=== PATIENT | male | born 1985 | race Two or more races ===

== ENCOUNTER 2016-11-16 07:33 | Inpatient (IN) | payer OTHER ==
[2016-11-16] VITALS (14 sets, daily range): BP systolic 97–145; BP diastolic 45–83
[~2016-11-16] VITALS: Ht 167.6 cm; Wt 92.5 kg
[~2016-11-16 07:33] MED LIST: Bacitracin 50000 Units Vial ONE; Bupivacaine 0.5% Inj 30 ml vial INJ ONE; Bupivacaine w/Epi 0.5% 30ml Vial INJ ONE; Dexamethasone 20mg/5ml IVP ONE; Heparin 5000 units/ml inj ONE; NKM; Thrombin 5000 units TOPIC ONE; Vancomycin 1gm inj IVPB ONE; ceFAZolin sod 1 GM in NS 55 ML IVPB ONE
[2016-11-16] MEDS ORDERED: Sterile Water Irrig 1000ml IRRIG ONE (08:40)
[2016-11-16] MEDS ORDERED: Zemuron 50mg/5ml Inj IV ONE (08:40)
[2016-11-16] MEDS ORDERED: fentaNYL 250mcg/5ml ONE (08:40)
[2016-11-16] MEDS ORDERED: Propofol 10mg/ml 100ml btl IV ONE (08:40)
[2016-11-16] MEDS ORDERED: Dexamethasone 4mg/ml vial ONE (08:40)
[2016-11-16] MEDS ORDERED: fentaNYL 100 mcg/2 mL IV ONE (08:40)
[2016-11-16] MEDS ORDERED: Lidocaine 1% MPF 10mg/ml 5ml ONE (08:40)
[2016-11-16] MEDS ORDERED: LR 1000ml ONE (08:40)
[2016-11-16] MEDS ORDERED: Labetalol 5mg/ml 20ml vial IV ONE (08:40)
[2016-11-16] MEDS ORDERED: NS Irrig 1000ml ONE (08:40)
[2016-11-16] MEDS ORDERED: Lidocaine 1% Plain 30 ml INJ ONE (08:40)
[2016-11-16] MEDS ORDERED: LR 1000ml 1,000 ML IVLG SCH (08:44)
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
[2016-11-16] MEDS ORDERED: Hydromorphone 0.5mg/0.5ml inj IVP PRN (08:45)
[2016-11-16] MEDS ORDERED: DiphenhydrAMINE 50mg/ml Inj IVP PRN (08:45)
[2016-11-16] MEDS ORDERED: Norco 7.5mg/325mg tab ORAL PRN (08:45)
[2016-11-16] MEDS ORDERED: Metoclopramide 10mg/2ml Inj IVP PRN ×2 (08:45→11:30)
[2016-11-16] MEDS ORDERED: Ketorolac 60mg Inj IV PRN (08:45)
[2016-11-16] MEDS ORDERED: Atropine Inj 1mg/10ml Syr IV PRN (08:45)
[2016-11-16] MEDS ORDERED: LORazepam Inj 2mg/ml 1ml IV PRN (08:45)
[2016-11-16] MEDS ORDERED: Midazolam 2mg/2ml Inj IVP PRN (08:45)
[2016-11-16] MEDS ORDERED: fentaNYL 100 mcg/2 mL IV PRN (08:45)
[2016-11-16] MEDS ORDERED: Meperidine 25mg/0.5ml Inj IV PRN (08:45)
[2016-11-16] MEDS ORDERED: Ketorolac 30mg Inj IV PRN (08:45)
[2016-11-16] MEDS ORDERED: Oxycodone/Acetaminophen 5-325 ORAL PRN (08:45)
[2016-11-16] MEDS ORDERED: Norco 5mg/325mg tab ORAL PRN (08:45)
[2016-11-16] MEDS ORDERED: Acetaminophen (Non formulary) 100 ML IV ONE (09:00)
--- NOTE | 2016-11-16 09:02 | Pre-Procedure Note/Attestation ---
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 I attest that, if there was a reasonable possibility of needing a blood transfusion, the patient (or the patient's legal electronics parts sales representative) was given the [place] Department of Health Services standardized written summary, pursuant to the Javier Gavin Blood Safety Act ([place] Health and Safety Code # 1645, as amended). I attest that I re-evaluated the patient just prior to the surgery and that there has been no change in the patient's H&P, except as documented below: BERENICE BRUNNER November 16, 2016 09:02
--- NOTE | 2016-11-16 09:16 | Immediate Post-Op Evaluation ---
Immediate Post-Op Evalulation Immediate Post-Op Evalulation Procedure: ALIF L4-5 Date of Evaluation: November 16, 2016 Time of Evaluation: 11:19 IV Fluids: [id number] Blood Products: 0 Estimated Blood Loss: 40 Urinary Output: 50 Blood Pressure Systolic: 102 Blood Pressure Diastolic: 56 Pulse Rate: 74 Respiratory Rate: 16 O2 Sat by Pulse Oximetry: 98 Temperature (Fahrenheit): 97.3 Pain Score (1-10): 3 Nausea: No Vomiting: No Complications 0 Patient Status: awake, reacts, patent, extubated, none Hydration Status: adequate Dru Grams Ancef IV Given Within 1 Hr of Incision: Yes Time Given: 09:01 Jonathan Schultz MD November 16, 2016 09:16
--- NOTE | 2016-11-16 11:25 | Brief Operative Note ---
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
[2016-11-16] MEDS ORDERED: PCA HYDROmorphone 1mg/ml 30 ML IV PRN ×3 (12:00)
[2016-11-16] MEDS ORDERED: Rate Change PCA 1 Each MISC PRN (12:00)
[2016-11-16] MEDS: D5 1/2NS 1,000 ML IV SCH ×2 (14:32→20:25)
--- NOTE | 2016-11-16 16:08 | Operative Note - Dictated ---
DATE OF OPERATION: 11/16/2016 VASCULAR SURGEON: Jadyon Alcantar M.D. SPINE SURGEON: Sanchez Marks M.D. PREOPERATIVE DIAGNOSIS: Degenerative disk disease. POSTOPERATIVE DIAGNOSIS: Degenerative disk disease. PROCEDURE: Anterior retroperitoneal exposure of L4-L5 vertebral interspace. INDICATIONS: The patient is a very pleasant gentleman, who was seen prior to surgery and is scheduled for anterior fusion at L4-L5. He has been made aware of the risks of surgery including possibly vascular injury, deep venous thrombosis and bleeding complications. He has had no prior intra-abdominal surgery before. DESCRIPTION OF FINDINGS: A vertical midline incision was used. A left retroperitoneal approach was used. There is no peritoneal or ureteral violation. Exposure of L4-L5 was obtained by retraction of left iliac vessels towards the patient's right. There was a small amount of lymphatic drainage encountered at the level of the iliolumbar vein. This was corrected with multiple vascular clips on the lymphatic tissue. On completion, there was no lymphatic fluid in the in the retroperitoneal space and clean and dry. There is no peritoneal or ureteral violation. There is no vascular injury. DESCRIPTION OF PROCEDURE: The patient was taken to the operating room. General anesthesia was used. Intravenous antibiotics were given. The patient's abdomen was prepped and draped. Proper time-out procedure taken. A low vertical midline incision was made. The anterior fascia incised longitudinally in the midline. A plane identified posterior to the left rectus abdominis and developed posterolaterally towards the patient's left. The retroperitoneal space was entered below the arcuate line. The peritoneum and ureter mobilized towards the patient's right exposing the left common iliac vessels. Dissection was carried on the lateral surface of the iliac vessels. The iliolumbar vein was identified and was encircled using a 2-0 silk tie and then triply ligated proximally distally with vascular clips and divided. During this maneuver, there was a small amount of white lymphatic drainage encountered. This was carefully inspected and was found to be coming from the lymphatic tissue lateral to the vein. This was then ligated using vascular clips. The left iliac vessels were then retracted towards the patient's right exposing the anterior surface of L4-L5. The Omni retractor was set in place. Fluoroscopy then used to confirm the appropriate level. Then instrumentation fusion performed at L4-L5 as dictated separately. On completion, the peritoneum and ureter intact. Iliac vessels were intact. Anterior fascia closed using #1 PDS in a running fashion and skin and subcutaneous tissue closed with 3-0 Vicryl and 4-0 Monocryl running subcuticular closure technique. Estimated blood loss was less than 100. Complications were none. Jaydon Guilherme Alcantar DR: TIFFANIE JOB#: [id number] CC:
[2016-11-16] MEDS: ceFAZolin sod 1 GM in D5W 55 ML IV SCH (16:29)
--- NOTE | 2016-11-16 16:29 | Operative Note - Dictated ---
DATE OF OPERATION: 11/16/2016 SURGEON: Sanchez Marks M.D. CO-SURGEON: Vascular Surgery, Jaydon Alcantar M.D. ANESTHESIOLOGIST: Jonathan Schultz M.D. ANESTHESIA: General with intubation. ADMITTING/PREOPERATIVE DIAGNOSES: Posttraumatic back pain, radiculopathy with spondylolysis, spondylolisthesis, spinal instability. POSTOPERATIVE DIAGNOSES: Posttraumatic back pain, radiculopathy with spondylolysis, spondylolisthesis, spinal instability. OPERATIVE PROCEDURE: 1. Anterior L4-L5 Interbody reconstruction, fusion, bone morphogenic protein, insertion of artificial lordotic device, Jan. 2. SSEP monitoring. 3. Intraoperative fluoroscopy interpreted by surgeon. ESTIMATED BLOOD LOSS: Minimal. COMPLICATIONS: None. POSTOPERATIVE CONDITION: Good/stable. SPECIMENS: None. Please see vascular approach and closure by Dr. Marks, assisted by Dr. Alcantar. DESCRIPTION OF PROCEDURE: The patient was brought to the operating room and in supine position, general anesthesia with intubation was induced. IV antibiotics and IV Decadron were administered prior to incision time. Anterior exposure was undertaken, please see separate note, of L4-L5 with confirmation midline and level in AP and lateral planes under sterile conditions. Markers in place. Level was marked. Retractors placed. Annulotomy performed anteriorly with diskectomy, but not through the posterior longitudinal ligament. Endplate preparation to bleeding bone cephalad, caudad, and mediolateral without penetration to the lateral annulus at any time. SSEP monitoring stable. Interpositional placement of Titanium/PEEK graft Jan of the appropriate dimensions with lordosis with correction of deformity to lordosis from kyphosis. Care taken for negative distraction of the posterior spondylitic defect. Appropriate interbody device placed with bone morphogenic protein, followed with deployment of internal fixation cephalad, caudad into the vertebral bodies. SSEP monitoring stable at all times. AP and lateral radiographs obtained demonstrated excellent alignment and position. Recorded. After closure, the patient was awakened, extubated in the operating room, and transported to postop recovery in good stable condition. Sanchez Marks M.D. DR: DELONTE/Manjit JOB#: [id number] CC:
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
[2016-11-16] MEDS: PCA shift volume MISC SCH (19:33)
[2016-11-17] VITALS (12 sets, daily range): BP systolic 111–133; BP diastolic 53–84
[2016-11-17] MEDS: ceFAZolin sod 1 GM in D5W 55 ML IV SCH ×3 (01:11→21:29)
[2016-11-17] MEDS: D5 1/2NS 1,000 ML IV SCH ×3 (05:14→21:29)
[2016-11-17] MEDS: PCA shift volume MISC SCH ×2 (07:11→19:24)
--- NOTE | 2016-11-17 08:39 | Diagnostic Imaging Report ---
Indication: PAIN , intraoperative Technique: Digital intraoperative images Comparison: None Findings: Intraoperative images demonstrate surgical tool projected at the anterior aspect of what is presumably the L4-5 disc. Subsequent images document placement of disc hardware at L4-5 Impression: Intraoperative imaging, as described
[2016-11-17] MEDS ORDERED: Bacitracin 50000 Units Vial ONE (12:20)
[2016-11-17] MEDS ORDERED: Bupivacaine w/Epi 0.5% 30ml Vial INJ ONE (12:20)
[2016-11-17] MEDS ORDERED: Lacri-Lube Opth Oint 3.5gm ONE (12:20)
[2016-11-17] MEDS ORDERED: Thrombin 5000 units TOPIC ONE (12:20)
[2016-11-17] MEDS ORDERED: Surgicel 4in x 8in TOPIC ONE (12:20)
[2016-11-17] MEDS ORDERED: Vancomycin 1gm inj IVPB ONE (12:20)
[2016-11-17] MEDS ORDERED: NS Irrig 1000ml ONE (12:45)
[2016-11-17] MEDS ORDERED: fentaNYL 100 mcg/2 mL IV ONE (12:45)
[2016-11-17] MEDS ORDERED: Propofol 10mg/ml 100ml btl IV ONE (12:45)
[2016-11-17] MEDS ORDERED: LR 1000ml ONE (12:45)
[2016-11-17] MEDS ORDERED: Labetalol 5mg/ml 20ml vial IV ONE (12:45)
[2016-11-17] MEDS ORDERED: Zemuron 50mg/5ml Inj IV ONE (12:45)
[2016-11-17] MEDS ORDERED: Lidocaine 1% Plain 30 ml INJ ONE (12:45)
[2016-11-17] MEDS ORDERED: Sterile Water Irrig 1000ml IRRIG ONE (12:45)
[2016-11-17] MEDS ORDERED: Neostigmine 1mg/ml 10ml Inj ONE (12:45)
[2016-11-17] MEDS ORDERED: Dexamethasone 4mg/ml vial ONE (12:45)
[2016-11-17] MEDS ORDERED: fentaNYL 250mcg/5ml ONE (12:45)
[2016-11-17] MEDS ORDERED: Glycopyrrolate 0.2mg/ml 1ml Vial ONE (12:45)
[2016-11-17] MEDS ORDERED: Lidocaine 1% MPF 10mg/ml 5ml ONE (12:45)
[2016-11-17] MEDS ORDERED: LR 1000ml 1,000 ML IVLG SCH (12:50)
--- NOTE | 2016-11-17 12:55 | Immediate Post-Op Evaluation ---
Immediate Post-Op Evalulation Immediate Post-Op Evalulation Procedure: Posterior Pedilce screws, L4-5 Date of Evaluation: November 17, 2016 Time of Evaluation: 16:05 IV Fluids: 1000 LR Blood Products: 0 Estimated Blood Loss: 25 Urinary Output: 150 Blood Pressure Systolic: 126 Blood Pressure Diastolic: 66 Pulse Rate: 97 Respiratory Rate: 16 O2 Sat by Pulse Oximetry: 99 Temperature (Fahrenheit): 98.9 Pain Score (1-10): 3 Nausea: No Vomiting: No Complications 0 Patient Status: awake, reacts, patent, extubated, none Hydration Status: adequate Dru Grams Ancef IV Given Within 1 Hr of Incision: Yes Time Given: 13:01 Jonathan Schultz MD November 17, 2016 12:55
[2016-11-17] MEDS ORDERED: Norco 7.5mg/325mg tab ORAL PRN (13:00)
[2016-11-17] MEDS ORDERED: Meperidine 25mg/0.5ml Inj IV PRN (13:00)
[2016-11-17] MEDS ORDERED: Midazolam 2mg/2ml Inj IVP PRN (13:00)
[2016-11-17] MEDS ORDERED: fentaNYL 100 mcg/2 mL IV PRN (13:00)
[2016-11-17] MEDS ORDERED: Acetaminophen (Non formulary) 100 ML IV ONE (13:00)
[2016-11-17] MEDS ORDERED: Ketorolac 60mg Inj IV PRN (13:00)
[2016-11-17] MEDS ORDERED: Metoclopramide 10mg/2ml Inj IVP PRN (13:00)
[2016-11-17] MEDS ORDERED: Oxycodone/Acetaminophen 5-325 ORAL PRN (13:00)
[2016-11-17] MEDS ORDERED: LORazepam Inj 2mg/ml 1ml IV PRN (13:00)
[2016-11-17] MEDS ORDERED: Norco 5mg/325mg tab ORAL PRN (13:00)
[2016-11-17] MEDS ORDERED: Hydromorphone 0.5mg/0.5ml inj IVP PRN (13:00)
[2016-11-17] MEDS ORDERED: Atropine Inj 1mg/10ml Syr IV PRN (13:00)
[2016-11-17] MEDS ORDERED: DiphenhydrAMINE 50mg/ml Inj IVP PRN (13:00)
[2016-11-17] MEDS ORDERED: Ketorolac 30mg Inj IV PRN (13:00)
--- NOTE | 2016-11-17 13:14 | Pre-Procedure Note/Attestation ---
Pre-Procedure Note/Attestation Complete Prior to Procedure Planned Procedure: not applicable Procedure Narrative: Pedicle screw L4, L5 marie laminectomy L4 Fusion L4-L5 Indications for Procedure Pre-Operative Diagnosis: Post trauma back pain L4 Spondylolysis, L4-5 spondylolisthesis Attestation I attest that I discussed the nature of the procedure; its benefits; risks and complications; and alternatives (and the risks and benefits of such alternatives ), prior to the procedure, with the patient (or the patient's legal admissions representative). I attest that, if there was a reasonable possibility of needing a blood transfusion, the patient (or the patient's legal admissions representative) was given the [place] Department of Health Services standardized written summary, pursuant to the Javier Gavin Blood Safety Act ([place] Health and Safety Code # 1645, as amended). I attest that I re-evaluated the patient just prior to the surgery and that there has been no change in the patient's H&P, except as documented below: BERENICE BRUNNER November 17, 2016 13:14
--- NOTE | 2016-11-17 15:08 | Brief Operative Note ---
Immediate Post Operative Note Operative Note Pre-op Diagnosis: Post trauma back pain L4 Spondylolysis, L4-5 spondylolisthesis Procedure: Anterior Interbody fusion Interbody Device BMP Fusion SSEP Fluroscopy 11/17/2016 Posterior Pedicle Screw L4, L5 Nobles Left L4 SSEP xray Post-op Diagnosis: same as pre-op Surgeon: Selina Molecular Biologist: Lisset Anesthesiologist: Antoine Anesthesia: general Specimen: none Complications: none Condition: stable Estimated Blood Loss: minimal Drains: none Implant(s) used?: Yes BERENICE BRUNNER November 17, 2016 15:08
[2016-11-17] MEDS ORDERED: D5 1/2NS 1,000 ML IV SCH (15:09)
[2016-11-17] MEDS ORDERED: D5 1/2NS 1000ml IV ONE (15:12)
--- NOTE | 2016-11-17 16:13 | Diagnostic Imaging Report ---
Indications: Low back, left lower extremity pain, lumbar posterior fusion Technique: Above procedure including fluoroscopy performed by Dr. Marks. Portable intraoperative PA and lateral spot film images of lower lumbar spine performed. Findings: Comparison: 11/16/2016 Initial image demonstrates fusion hardware within the L4-5 disc space, surgical implement overlying the posterior elements at the same level. Subsequent images demonstrate placement of bilateral pedicle screws at L4 and L5. IMPRESSION: Intraoperative changes as described
[2016-11-17] MEDS ORDERED: Rate Change PCA 1 Each MISC PRN (16:45)
--- NOTE | 2016-11-17 17:48 | Progress Note ---
DATE: 11/17/2016 ACUTE PAIN MANAGEMENT PHYSICIAN PROGRESS NOTE MEDICATIONS: Medication administration record reviewed. Medications include BULLION WEIGHER Dilaudid, Protonix, Zofran, Phenergan, Narcan, Benadryl, Cepacol, Soma, and Mylanta. LABORATORY STUDIES: No interval laboratory studies. OBJECTIVE: VITAL SIGNS: His pain level is 7/10 on visual pain scale, afebrile, pulse 83, respirations 18, oxygen saturation 99% room air and blood pressure 126/74. I spent over 60 minute in consultation today. I saw the patient at bedside with the nurse RN, Moraima. There have been no episodes of oversedation thankfully. He has been using his BULLION WEIGHER unit and feels comfortable that the dose started at 0.1 mg, has been well-tolerated medication at higher dose. I will increase the dose to 0.2 mg after he completes stage II posterior lumbar spine fusion surgery today. The patient also states that he has tolerated oral Valium. I will start with the low 2.5 mg dose to test for tolerability. The patient states that in the past after a dose of Sperry 10/325 mg, the patient has had very shallow breathing. I agree with the continued usage of these low-dose medications with waiting at least 60 minutes between doses to avoid over sedation of respiratory depression and is narcotic-sensitive patient. Currently, he is alert and oriented x3, wide awake, and conversive with his girlfriend, who is at the bedside. The patient's girlfriend will assist the patient in home with his daily living once he is cleared medically to return home. The patient denies any nausea symptoms. I would continue him on Protonix for GI ulcer prophylaxis along with Mylanta for any GERD symptom exacerbation. The patient states that he has used Flexeril in the past. Dr. Marks does not approve of Flexeril usage. I will make available a half tablet of Soma in case of muscle relaxant as needed and I believe the oral Valium should be very effective as a muscle relaxant as well as to help reduce his opioid requirement and I did encourage for him continued incentive spirometer usage and encourage good pulmonary toilet. Montana Lord M.D. DR: CECILIO JOB#: [id number] CC:
--- NOTE | 2016-11-17 17:59 | 48 Hour Post Anesthesia Eval ---
Post Anesthesia Evaluation Procedure: Ant. discectomy with fusion L4-L5 Date of Evaluation: November 17, 2016 Time of Evaluation: 17:58 Blood Pressure Systolic: 116 0: 68 Pulse Rate: 72 Respiratory Rate: 22 Temperature (Fahrenheit): 97.6 O2 Sat by Pulse Oximetry: 98 Airway: patent Nausea: No Vomiting: No Pain Intensity: 3 Hydration Status: adequate Cardiopulmonary Status: stable Mental Status/LOC: patient returned to baseline Follow-up Care/Observations: n/a Post-Anesthesia Complications: none Follow-up care needed: N/A RUBIA BENÍTEZ M.D. November 17, 2016 17:59
--- NOTE | 2016-11-17 22:18 | Operative Note - Dictated ---
DATE OF OPERATION: 11/17/2016 SURGEON: Sanchez Marks Ph.D. M.D. TIN RECOVERY WORKER: YAKELIN Christian. ANESTHESIA: Dr. Schultz, general with intubation. ADMITTING/PREOPERATIVE DIAGNOSES: Posttraumatic spondylolysis/spondylolisthesis, severe back pain, and radiculopathy. Failed prior spine surgery. OPERATIVE PROCEDURES: 1. Nobles laminectomy left L4. 2. High-power microscopic dissection. 3. SSEP monitoring. 4. Intraoperative x-rays interpreted by surgeon. 5. EMG evaluation. 6. Pedicle screw instrumentation, bilateral L4 and bilateral L5. ESTIMATED BLOOD LOSS: Minimal. COMPLICATIONS: None. POSTOPERATIVE CONDITION: Good/stable. PROCEDURE: The patient brought to the operating room and in supine position general anesthesia with intubation was induced. IV antibiotics and IV Decadron were administered 30 minutes prior to incision time. The patient carefully turned position to the prone position. Lumbodorsal spine was sterilely prepped. A spinal needle placed into the subcutaneous tissue only and a cross-table radiograph was obtained under sterile conditions demonstrating the correct level for incision placement. Needle was removed. Back was re-prepped sterilely and draped free in usual sterile fashion. Midline longitudinal incision was utilized to expose the appropriate intervals with sharp dissection through dermis and epidermis. Electrocautery dissection through the subcutaneous tissue to the level of the lumbodorsal fascia was incised right and left of midline over the involved intervals with exposure of the L4 and L5 transverse processes. Pars articularis fracture identified at the L4 pars. Under high-power magnification, a Nobles laminectomy dissection pars interarticularis and decompression of the nerve root left. The EMG activity negative. SSEP monitoring stable at all times. FloSeal applied after copious irrigation. Pedicle screw instrumentation was undertaken with fluoroscopic guidance under direct observation bilateral pedicles of L4 bilateral L5 with cortical breach posteriorly followed with probing of the pedicle confirmation with x-ray guidance determination of pedicle screw length tapping of the pedicle physical fall tip probe utilization for determination of cortical wall integrity mediolateral cephalad caudad followed the screw insertion. After all four screws were inserted with no EMG activity noted. No paralysis. A 5 milliamps of electrical stimulation. The lead screw negative recorded. Interconnecting rods locked into position. Copious irrigation. A 2 g vancomycin powder applied. Sequential reapproximation with Vicryl suture material of the lumbodorsal fascia, subcutaneous tissue. Dermis epidermis further reapproximated staple sutures. Sterile bands applied maintained place with tape. The patient carefully turned from the prone to supine position on the transport bed where is awakened extubated in the operating room, and transported to postop recovery in good stable condition. Sanchez Marks M.D. DR: Giuseppe JOB#: [id number] CC: EDGARDO
[2016-11-18 04:00] VITALS: BP 126/62
[2016-11-18] MEDS: D5 1/2NS 1,000 ML IV SCH (05:33)
[2016-11-18] MEDS: ceFAZolin sod 1 GM in D5W 55 ML IV SCH (05:33)
[2016-11-18] MEDS: PCA shift volume MISC SCH (07:07)
[2016-11-18 08:00] VITALS: BP 116/64
[2016-11-18] MEDS ORDERED: Milk of Magnesia 30ml Ud ORAL ONE (10:00)
[2016-11-18] MEDS ORDERED: NORCO 10-325 T1 EACH ORAL (11:30)
[2016-11-18] MEDS ORDERED: D5 1/2NS 1000ml IV ONE (11:49)
--- NOTE | 2016-11-18 17:28 | Progress Note ---
ACUTE PAIN MANAGEMENT PHYSICIAN PROGRESS NOTE: Medication administration record reviewed. MEDICATIONS: Include Mylanta, Soma, Cepacol, Valium, Benadryl, Narcan, Protonix, and Phenergan. VITAL SIGNS: Afebrile, pulse 103, respirations 18, blood pressure 116/64, and oxygen saturation 95% on room air. LABORATORY STUDIES: No interval laboratory studies. I saw the patient at bedside with his girlfriend. I discussed the case with nurse RN, Edis. Discussed the case with the surgeon, Dr. Marks. I spent over fifty minutes in consultation today. The patient has been passing positive flatus. After his stage II procedure yesterday, the patient has been doing very well. He has been ambulating without assistance around the room. He has been tolerating advancing diet and is passing positive flatus. He is currently trying to defecate in the restroom. If he do not have a bowel movement, I have ordered a dose of milk of magnesia and recommended prune juice to expedite a bowel movement. the surgeon will require the patient to have a bowel movement prior to discharging to home. The patient already has a prescription of pain medicines when he returns home and I suggested to the girlfriend that she contact the immigration attorney to see if the immigration attorney has a recommended pharmacy to expedite dispensing of the pain medication. The patient has been compliant using his incentive spirometer. He is afebrile. Dressing wounds appear clean and dry. The patient appears neurologically intact. Pain control was well managed on oral analgesics. I will defer discharge planning to the surgeon, Dr. Marks. [place] Lord M.D. DR: IRASEMA JOB#: [id number] CC:
[2016-11-18] MEDS ORDERED: PCA shift volume MISC SCH (19:00)
--- NOTE | 2016-11-19 17:31 | General Progress Note ---
Progress Note Progress Note POD 1 resolution preop back pain - radiculopathy, weakness lower extremities + flatus PE: NAD Motor 5/5 tib ant, ehl, post tib, peroneus l/b, triceps s. Impression Improved Plan increase diet increase gait. BERENICE BRUNNER November 19, 2016 17:31
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
== END 2016-11-18 11:50 | disposition home or self-care (01) | DRG 455 ==
LOC: SDSOVERFLO 07:33 → 3E 13:00
DX: M51.16 Intervertebral disc disorders with radiculopathy, lumbar region (principal); M53.2X6 Spinal instabilities, lumbar region; M47.26 Other spondylosis with radiculopathy, lumbar region; M43.16 Spondylolisthesis, lumbar region; V89.2XXS Person injured in unspecified motor-vehicle accident, traffic, sequela; Z88.6 Allergy status to analgesic agent
CPT/HCPCS: 36415; 72020; 76001; 86850; 86900; 86901; 87081; 94003; 94150; J2405; J2710

== ENCOUNTER 2016-11-25 07:01 | Day surgery (SDC) | payer OTHER ==
[2016-11-25] VITALS (9 sets, daily range): BP systolic 116–139; BP diastolic 58–72
[~2016-11-25] VITALS: Ht 167.6 cm; Wt 89.8 kg
[~2016-11-25 07:01] MED LIST changes: -Bacitracin 50000 Units Vial ONE; -Bupivacaine 0.5% Inj 30 ml vial INJ ONE; -Bupivacaine w/Epi 0.5% 30ml Vial INJ ONE; -Dexamethasone 20mg/5ml IVP ONE; -Heparin 5000 units/ml inj ONE; +NORCO 10-325 T1 EACH ORAL; -Thrombin 5000 units TOPIC ONE; -Vancomycin 1gm inj IVPB ONE; +ceFAZolin 1gm in D5W 55ml IVP ONE; -ceFAZolin sod 1 GM in NS 55 ML IVPB ONE; +celeBREX 200mg Cap **SURGERY PATIENTS ONLY ORAL ONE; +oxyCONTIN 20mg tab ORAL ONE
--- NOTE | 2016-11-25 07:20 | Pre-Procedure Note/Attestation ---
Pre-Procedure Note/Attestation Complete Prior to Procedure Planned Procedure: left Procedure Narrative: humerus removal of hardware Indications for Procedure Pre-Operative Diagnosis: left shoulder painful hardware Attestation I attest that I discussed the nature of the procedure; its benefits; risks and complications; and alternatives (and the risks and benefits of such alternatives ), prior to the procedure, with the patient (or the patient's legal inside outside sales representative). I attest that, if there was a reasonable possibility of needing a blood transfusion, the patient (or the patient's legal inside outside sales representative) was given the [facility] standardized written summary, pursuant to the Javier Gavin Blood Safety Act ([place] Health and Safety Code # 1645, as amended). I attest that I re-evaluated the patient just prior to the surgery and that there has been no change in the patient's H&P, except as documented below: GHASSAN GRADY November 25, 2016 07:20
--- NOTE | 2016-11-25 07:21 | Operative Note - PDOC ---
Operative Note Operative Note Pre-op Diagnosis: left shoulder painful hardware Procedure: see op report Post-op Diagnosis: same as pre-op plus Operative Findings: consistent w/pre-op dx studies Anesthesia: MAC Specimen: none Complications: none Condition: stable Estimated Blood Loss: none Implant(s) used?: No GHASSAN GRADY November 25, 2016 07:21
[2016-11-25] MEDS ORDERED: Bupivacaine 0.5% Inj 30 ml vial INJ ONE (10:50)
[2016-11-25] MEDS ORDERED: Bacitracin 50000 Units Vial ONE (10:50)
[2016-11-25] MEDS ORDERED: NS Irrig 1000ml ONE (11:30)
[2016-11-25] MEDS ORDERED: LR 1000ml ONE (11:30)
[2016-11-25] MEDS ORDERED: Sterile Water Irrig 1000ml IRRIG ONE (11:30)
[2016-11-25] MEDS ORDERED: Ketorolac 30mg Inj ONE (11:30)
[2016-11-25] MEDS ORDERED: fentaNYL 100 mcg/2 mL IV ONE (11:30)
[2016-11-25] MEDS ORDERED: Propofol 10mg/ml 20ml IV ONE (12:00)
[2016-11-25] MEDS ORDERED: LR 1000ml 1,000 ML IVLG SCH (12:11)
--- NOTE | 2016-11-25 12:11 | Anethesia Preoperative Eval ---
Anesthesia Pre-op PMH/ROS General Date of Evaluation: November 25, 2016 Time of Evaluation: 11:10 Anesthesiologist: federico ASA Score: ASA 2 Mallampati Score Class I : Soft palate, uvula, fauces, pillars visible Class II: Soft palate, uvula, fauces visible Class III: Soft palate, base of uvula visible Class IV: Only hard plate visible Mallampati Classification: Class II Surgeon: Shaquille Diagnosis: Painfull hardwear L humerus Surgical Procedure: Removal of L humerus hardwear Anesthesia History: none Family History: no anesthesia problems Allergies: Coded Allergies: OPIOIDS - MORPHINE ANALOGUES (Unverified Allergy, Unknown, 11/17/16) Wheat (Verified Adverse Reaction, Severe, bloating, 11/15/16) IBUPROFEN (Verified Adverse Reaction, Intermediate, GI SENSITIVITY, ) Uncoded Allergies: NARCOTICS OVER 10 MG (Adverse Reaction, Severe, RESPIRATORY ARREST, 11/24/16 ) Medications: see eMAR Past Medical History Cardiovascular: Denies: CAD, HTN, ND, arrhythmia, other, valve dz Pulmonary: Denies: COPD, LUISA, asthma, other Gastrointestinal/Genitourinary: Reports: GERD, Denies: CRI, ESRD, other Neurologic/Psychiatric: Reports: other - chronic pain, Denies: CVA, TIA, dementia, depression/anxiety Endocrine: Denies: DM, hypothyroidism, other, steroids HEENT: Denies: COUNCIL (L), COUNCIL (R), cataract (L), cataract (R), glaucoma, other Hematology/Immune: Denies: DVT, anemia, bleeding disorder, other Musculoskeletal/Integumentary: Denies: DDD, DJD, OA, RA, edema, other PMH Narrative: as above PSxH Narrative: Lumbar spine fusion, ORIF L humerus Anesthesia Pre-op Phys. Exam Physician Exam Last Vital Signs Date Time Temp Pulse Resp B/P Pulse Ox O2 Delivery O2 Flow Rate FiO2 11/25/16 07:26 98.5 75 18 127/70 99 Room Air Constitutional: NAD Neurologic: CN 2-12 intact Cardiovascular: RRR, no M/R/G Respiratory: CTA Gastrointestinal: S/NT/ND Airway Exam Mallampati Score: Class II MO: full Neck: flexible ROM: full Teeth: intact Dentures: no lower, no upper Anesthesia Pre-op A/P Labs see chart Studies Pre-op Studies: EKG - NSR Risk Assessment & Plan Assessment: ASA 2 Plan: GA with LMA Status Change Before Surgery: No Pre-Antibiotics Drug: Ancef 2gr. Given Within 1 Hr of Incision: Yes Time Given: 11:40 RUBIA BENÍTEZ M.D. November 25, 2016 12:11
[2016-11-25] MEDS ORDERED: Midazolam 2mg/2ml Inj IVP PRN (12:15)
[2016-11-25] MEDS ORDERED: Hydromorphone 0.5mg/0.5ml inj IVP PRN (12:15)
[2016-11-25] MEDS ORDERED: Ketorolac 30mg Inj IV PRN (12:15)
[2016-11-25] MEDS ORDERED: Meperidine 25mg/0.5ml Inj IV PRN (12:15)
[2016-11-25] MEDS ORDERED: DiphenhydrAMINE 50mg/ml Inj IVP PRN (12:15)
--- NOTE | 2016-11-25 12:55 | Immediate Post-Op Evaluation ---
Immediate Post-Op Evalulation Immediate Post-Op Evalulation Procedure: L humerus hardwear removal Date of Evaluation: November 25, 2016 Time of Evaluation: 12:53 IV Fluids: 1500 Blood Products: none Estimated Blood Loss: <50 Urinary Output: none Blood Pressure Systolic: 129 Blood Pressure Diastolic: 60 Pulse Rate: 86 Respiratory Rate: 20 O2 Sat by Pulse Oximetry: 99 Temperature (Fahrenheit): 97.6 Pain Score (1-10): 2 Nausea: No Vomiting: No Complications none Patient Status: reacts, patent, none Hydration Status: adequate RUBIA BENÍTEZ M.D. November 25, 2016 12:55
--- NOTE | 2016-11-25 14:12 | 48 Hour Post Anesthesia Eval ---
Post Anesthesia Evaluation Procedure: L humerus hardwear removal Date of Evaluation: November 25, 2016 Time of Evaluation: 14:10 Blood Pressure Systolic: 116 0: 72 Pulse Rate: 68 Respiratory Rate: 22 Temperature (Fahrenheit): 97.4 O2 Sat by Pulse Oximetry: 98 Airway: patent Nausea: No Vomiting: No Pain Intensity: 3 Hydration Status: adequate Cardiopulmonary Status: stable Mental Status/LOC: patient returned to baseline Follow-up Care/Observations: n/a Post-Anesthesia Complications: none Follow-up care needed: ready to discharge RUBIA BENÍTEZ M.D. November 25, 2016 14:12
[2016-11-25] MEDS ORDERED: Tylenol #3 tab (300mg/30mg) ORAL PRN (16:01)
[2016-11-25] MEDS ORDERED: D5 1/2NS 1,000 ML IV SCH (16:01)
[2016-11-25] MEDS ORDERED: HYDROmorphone 1mg/ml Carpuject SUBQ PRN (16:01)
[2016-11-25] MEDS ORDERED: Norco 5mg/325mg tab ORAL PRN (16:01)
--- NOTE | 2016-11-25 22:19 | Operative Note - Dictated ---
DATE OF OPERATION: 11/25/2016 PREOPERATIVE DIAGNOSES: 1. Status post open reduction and internal fixation left humerus fracture. 2. Left humerus painful hardware. 3. Humeral hypertrophic left arm scar. POSTOPERATIVE DIAGNOSES: 1. Status post open reduction and internal fixation left humerus fracture. 2. Left humerus painful hardware. 3. Humeral hypertrophic left arm scar. PROCEDURES PERFORMED: 1. Removal of left humerus hardware. 2. Scar revision of 3 cm. SURGEON: Roddy Corbin M.D. ANESTHESIA: General. INDICATION FOR PROCEDURE: The patient is a pleasant gentleman, who underwent an open reduction and internal fixation of left humeral shaft fracture. He had continued pain along the anterior and lateral aspect of the humerus as well as sensitivity along the scar. He elected to undergo removal of hardware and scar revision. Risks, limitations, expectations, and complications of the procedure were discussed in detail. All questions were addressed. DESCRIPTION OF PROCEDURE: An informed consent was obtained. The patient was taken to the operative room and placed under general anesthesia. The left arm was prepped and draped in a sterile manner. Ancef was administered. Time-out was performed. The previous keloid and stretched out scar was then coaxed out. Blunt dissection was performed in the subcutaneous tissue. At this point, the lateral third of the biceps tendon was identified and using blunt dissection, the anterolateral cortex of the humerus shaft was identified. Using direct visualization, ensured it was adjusting subperiosteal along the bone. The anterior portion of the plate was identified and 8 screws were removed along with the plate. Additional interfrag screw then was placed was now visualized, seem likely it was actually encased in the bone, therefore we elected to leave it alone. At this point, the wound was copiously irrigated. Complex closure using 0 Vicryl, 2-0 Vicryl, 3-0 Vicryl, 4-0 Monocryl, and Dermabond was performed. Compression dressing was applied. The patient was awoken and taken to recovery room with stable vital signs. ESTIMATED BLOOD LOSS: Minimal. COMPLICATIONS: None. SPECIMENS: None. IMPLANTS: None. EXPLANTS: Include one plate with 8 screws. Roddy Corbin M.D. DR: EDMAR JOB#: [id number] CC:
== END 2016-11-25 14:05 | disposition home or self-care (01) ==
LOC: SUR 07:01
DX: T84.84XA Pain due to internal orthopedic prosthetic devices, implants and grafts, initial encounter (principal); Y83.8 Other surgical procedures as the cause of abnormal reaction of the patient, or of later complication, without mention of misadventure at the time of the procedure; Y92.009 Unspecified place in unspecified non-institutional (private) residence as the place of occurrence of the external cause; L91.0 Hypertrophic scar; K21.9 Gastro-esophageal reflux disease without esophagitis; G89.29 Other chronic pain; Z87.891 Personal history of nicotine dependence; Z88.5 Allergy status to narcotic agent; Z88.6 Allergy status to analgesic agent
CPT/HCPCS: 11403; 20680; J0690; J1885; J2704; J3010; J3490; J7120; 94003; 94150

== ENCOUNTER 2017-03-01 05:12 | Inpatient (IN) | payer OTHER ==
[~2017-03-01] VITALS: Ht 160 cm; Wt 94.8 kg
[2017-03-01] VITALS (11 sets, daily range): BP systolic 112–145; BP diastolic 42–83
[~2017-03-01 05:12] MED LIST changes: -ceFAZolin 1gm in D5W 55ml IVP ONE; -celeBREX 200mg Cap **SURGERY PATIENTS ONLY ORAL ONE; -oxyCONTIN 20mg tab ORAL ONE
[2017-03-01] MEDS ORDERED: NKM (06:07)
[2017-03-01] MEDS ORDERED: Bacitracin 50000 Units Vial ONE (06:47)
[2017-03-01] MEDS ORDERED: Surgicel 4in x 8in TOPIC ONE (06:47)
[2017-03-01] MEDS ORDERED: Thrombin 5000 units TOPIC ONE (06:47)
[2017-03-01] MEDS ORDERED: Vancomycin 1gm inj IVPB ONE (06:47)
[2017-03-01] MEDS ORDERED: Bupivacaine 0.5% Inj 30 ml vial INJ ONE (06:48)
[2017-03-01] MEDS ORDERED: Lidocaine 1% Plain 30 ml INJ ONE ×2 (06:48→07:00)
[2017-03-01] MEDS ORDERED: LR 1000ml 1,000 ML IVLG SCH (06:49)
--- NOTE | 2017-03-01 06:51 | Anethesia Preoperative Eval ---
Anesthesia Pre-op PMH/ROS General Date of Evaluation: Mar 01, 2017 Time of Evaluation: 07:06 Anesthesiologist: Antoine ASA Score: ASA 1 Mallampati Score Class I : Soft palate, uvula, fauces, pillars visible Class II: Soft palate, uvula, fauces visible Class III: Soft palate, base of uvula visible Class IV: Only hard plate visible Mallampati Classification: Class II Surgeon: Selina Diagnosis: Neck Pain Anesthesia History: none Family History: no anesthesia problems Allergies: Coded Allergies: OPIOIDS - MORPHINE ANALOGUES (Unverified Allergy, Unknown, 11/17/16) Wheat (Verified Adverse Reaction, Severe, bloating, 11/15/16) IBUPROFEN (Verified Adverse Reaction, Intermediate, GI SENSITIVITY, ) Uncoded Allergies: NARCOTICS OVER 10 MG (Adverse Reaction, Severe, RESPIRATORY ARREST, 11/24/16 ) Medications: see eMAR Past Medical History Other: obesity - BMI 37 Anesthesia Pre-op Phys. Exam Physician Exam Last Vital Signs Date Time Temp Pulse Resp B/P Pulse Ox O2 Delivery O2 Flow Rate FiO2 03/01/17 05:45 97.8 80 18 133/75 98 Room Air Constitutional: NAD Neurologic: CN 2-12 intact Cardiovascular: RRR Respiratory: CTA Gastrointestinal: S/NT/ND Airway Exam Mallampati Score: Class II MO: full ROM: limited Teeth: intact Anesthesia Pre-op A/P Risk Assessment & Plan Assessment: ASA 1 Plan: GA, BIS, Glidescope Status Change Before Surgery: No Pre-Antibiotics Dru Grams Ancef IV Given Within 1 Hr of Incision: Yes Time Given: 07:46 Jonathan Schultz MD Mar 01, 2017 06:51
[2017-03-01] MEDS ORDERED: Norco 5mg/325mg tab ORAL PRN (07:00)
[2017-03-01] MEDS ORDERED: ceFAZolin sod 1 GM in NS 55 ML IVPB ONE (07:00)
[2017-03-01] MEDS ORDERED: Midazolam 2mg/2ml Inj IVP PRN (07:00)
[2017-03-01] MEDS ORDERED: Norco 7.5mg/325mg tab ORAL PRN (07:00)
[2017-03-01] MEDS ORDERED: fentaNYL 250mcg/5ml ONE (07:00)
[2017-03-01] MEDS ORDERED: DiphenhydrAMINE 50mg/ml Inj IVP PRN ×2 (07:00→15:00)
[2017-03-01] MEDS ORDERED: oxyCODONE HCL/Acetaminophen 5/325mg ORAL PRN (07:00)
[2017-03-01] MEDS ORDERED: Labetalol 5mg/ml 20ml vial IV ONE (07:00)
[2017-03-01] MEDS ORDERED: Zemuron 50mg/5ml Inj IV ONE (07:00)
[2017-03-01] MEDS ORDERED: Lidocaine 1% MPF 10mg/ml 5ml ONE (07:00)
[2017-03-01] MEDS ORDERED: Glycopyrrolate 0.2mg/ml 1ml Vial ONE (07:00)
[2017-03-01] MEDS ORDERED: Atropine Inj 1mg/10ml Syr IV PRN (07:00)
[2017-03-01] MEDS ORDERED: Dexamethasone 20mg/5ml IVP ONE (07:00)
[2017-03-01] MEDS ORDERED: Ketorolac 30mg Inj IV PRN (07:00)
[2017-03-01] MEDS ORDERED: Ketorolac 60mg Inj IV PRN (07:00)
[2017-03-01] MEDS ORDERED: LORazepam Inj 2mg/ml 1ml IV PRN (07:00)
[2017-03-01] MEDS ORDERED: Meperidine 25mg/0.5ml Inj (FOR RIGORS ONLY) IV PRN (07:00)
[2017-03-01] MEDS ORDERED: Neostigmine 1mg/ml 10ml Inj ONE (07:00)
[2017-03-01] MEDS ORDERED: fentaNYL 100 mcg/2 mL IV ONE (07:00)
[2017-03-01] MEDS ORDERED: Propofol 10mg/ml 100ml btl IV ONE (07:00)
[2017-03-01] MEDS ORDERED: Hydromorphone 0.5mg/0.5ml inj IVP PRN (07:00)
[2017-03-01] MEDS ORDERED: LR 1000ml ONE (07:00)
[2017-03-01] MEDS ORDERED: fentaNYL 100 mcg/2 mL IV PRN (07:00)
[2017-03-01] MEDS ORDERED: Metoclopramide 10mg/2ml Inj IVP PRN (07:00)
--- NOTE | 2017-03-01 07:06 | Pre-Procedure Note/Attestation ---
Pre-Procedure Note/Attestation Complete Prior to Procedure Planned Procedure: not applicable Procedure Narrative: ADR C4-5, C5-6 possible ACDF C4-5, C5-6 Indications for Procedure Pre-Operative Diagnosis: Trauma Neck Pain Attestation I attest that I discussed the nature of the procedure; its benefits; risks and complications; and alternatives (and the risks and benefits of such alternatives ), prior to the procedure, with the patient (or the patient's legal guest services representative). I attest that, if there was a reasonable possibility of needing a blood transfusion, the patient (or the patient's legal guest services representative) was given the [facility] standardized written summary, pursuant to the Javier Gavin Blood Safety Act ([place] Health and Safety Code # 1645, as amended). I attest that I re-evaluated the patient just prior to the surgery and that there has been no change in the patient's H&P, except as documented below: BERENICE BRUNNER Mar 01, 2017 07:06
[2017-03-01] MEDS ORDERED: Acetaminophen (Non formulary) 1,000 MG/100 ML ML IV ONE (08:00)
--- NOTE | 2017-03-01 10:19 | Immediate Post-Op Evaluation ---
Immediate Post-Op Evalulation Immediate Post-Op Evalulation Procedure: ADR C4-5, C5-6 Date of Evaluation: Mar 01, 2017 Time of Evaluation: 11:34 IV Fluids: 1800 LR Blood Products: 0 Estimated Blood Loss: 30 Urinary Output: 0 Blood Pressure Systolic: 112 Blood Pressure Diastolic: 52 Pulse Rate: 84 Respiratory Rate: 16 O2 Sat by Pulse Oximetry: 99 Temperature (Fahrenheit): 98.3 Pain Score (1-10): 3 Nausea: No Vomiting: No Complications 0 Patient Status: awake, reacts, patent, extubated, none Hydration Status: adequate Dru Grams Ancef IV Given Within 1 Hr of Incision: Yes Time Given: 07:46 Jonathan Schultz MD Mar 01, 2017 10:19
--- NOTE | 2017-03-01 10:20 | 48 Hour Post Anesthesia Eval ---
Post Anesthesia Evaluation Procedure: ADR C4-5, C5-6 Date of Evaluation: Mar 01, 2017 Time of Evaluation: 13:44 Blood Pressure Systolic: 121 0: 76 Pulse Rate: 78 Respiratory Rate: 18 Temperature (Fahrenheit): 98.6 O2 Sat by Pulse Oximetry: 99 Airway: patent Nausea: No Vomiting: No Pain Intensity: 3 Hydration Status: adequate Cardiopulmonary Status: Stable Mental Status/LOC: patient returned to baseline Follow-up Care/Observations: 0 Post-Anesthesia Complications: 0 Follow-up care needed: ready to discharge Jonathan Schultz MD Mar 01, 2017 10:20
--- NOTE | 2017-03-01 10:46 | Brief Operative Note ---
Immediate Post Operative Note Operative Note Pre-op Diagnosis: Trauma Neck Pain Procedure: ADR C4-5, C5-6 Microscope SSEP Xray Post-op Diagnosis: same as pre-op Findings: consistent w/pre-op dx studies Surgeon: Selina GARBER Online Advertising Manager: Lisset HAMLIN Anesthesiologist: Antoine GARBER Anesthesia: general Specimen: none Complications: none Condition: stable Estimated Blood Loss: minimal Drains: none Implant(s) used?: Yes BERENICE BRUNNER Mar 01, 2017 10:46
[2017-03-01] MEDS ORDERED: Naloxone 0.4mg/ml Inj IVP PRN (11:00)
[2017-03-01] MEDS ORDERED: HYDROmorphone 1mg/ml Carpuject SUBQ PRN (11:00)
--- NOTE | 2017-03-01 12:00 | Operative Note - Dictated ---
DATE OF OPERATION: 03/01/2017 SURGEON: Sanchez Marks, Ph.D., M.D. MINERAL ENGINEER: YAKELIN Christian. ANESTHESIOLOGIST: Jonathan Schultz M.D. ANESTHESIA: General with intubation. ESTIMATED BLOOD LOSS: Minimal. COMPLICATIONS: None. POSTOPERATIVE CONDITION: Good/stable. SPECIMENS: None. PREOPERATIVE DIAGNOSIS: Posttraumatic cervical neck pain. POSTOPERATIVE DIAGNOSIS: Posttraumatic cervical neck pain. OPERATIVE PROCEDURES: 1. Artificial disc replacement, C4-C5, C5-C6. 2. High-power microscopic dissection. 3. SSEP monitoring. 4. Intraoperative fluoroscopy interpreted by surgeon. DESCRIPTION OF PROCEDURE: The patient was brought to the operating room and in the supine position, general anesthesia with intubation was induced. Intravenous antibiotics and intravenous Decadron were administered 30 minutes prior to incision time. The patient appropriately positioned in the supine position. Anterior cervical spine, right lateral marker placed without penetration through the skin and a cross-table image obtained demonstrating the correct level for incision placement. Marker removed. A sterile marking pen utilized on the contralateral-left side of the neck to gustavo for the incision. Placement based on fluoroscopy determined. Anterior cervical spine sterilely prepped and draped free in usual sterile fashion. A transverse left incision sharply placed as previously marked through dermis and epidermis. Electrocautery dissection was carried through the subcutaneous tissue to the level of the cervical thoracic fascia. The patient was repositioned in supine position. Fluoroscopic imaging and markers not penetrating the skin. Incision level determined and marked appropriately with a sterile marking pen. Anterior cervical spine sterilely prepped and draped free in the usual sterile fashion. Transverse incision left sharply placed at the dermis and epidermis. Electrocautery dissection through the subcutaneous tissue to the level of the platysmas muscle was identified, isolated and transected in line with the incision. Dissection was carried medial to the left sternocleidomastoid muscle to the deep cervical and the pretracheal fascia. Medial to the carotid sheath. Spinal needle bent at 90 degrees so as to avoid penetration greater than 3 mm and this was placed into the disc under direct observation. Cross-table imaging was obtained under sterile conditions demonstrating the correct level for further dissection. Longus colli muscles elevated over the appropriate intervals. Retractors were placed. Deep to the longus colli muscles at the C4-C5 interval. Marker placed into the space-needle as previously bent at 90 degrees-and a cross-table fluoroscopic image under sterile conditions, confirmed the level again. Level was marked. Needle removed. Diskectomy performed to the posterior longitudinal ligament. Appropriate preparation of the interval undertaken with resection of the posterior longitudinal ligament. Asymmetric right disk herniation posterior to the ligament identified and resected. Wound irrigated. No dural tears or leaks noted anytime. SSEP monitoring. Artificial disc inserted by [employer]-manufacture protocol with sizing fluoroscopic confirmation, drilling of the vertebral bodies followed with real cuts and the appropriate sized prosthesis inserted. Fluoroscopic image excellent alignment. Wound irrigated antibiotic-containing saline. Bleeding bone cauterized with application of sterile wax. Retractors were moved to the C5-C6 interval. Small anterior osteophyte on the anterior superior aspect of C6 resected under high-power magnification, Midas Gautam bur dissection. Disk space appropriately prepped with diskectomy to the posterior longitudinal ligament. Posterior longitudinal ligament resected. No dural tears or leaks noted in time. The patient is stable at SSEP. Disk insertion was with the identical technique as noted previously for C4-C5. Fluoroscopic guidance revealed excellent alignment. Wound irrigated antibiotic-containing saline. Bleeding bone was cauterized with application of sterile wax. Retractors removed. Exploration revealed no excoriation or laceration of vital structures. FloSeal applied, followed with vancomycin powder 0.5 g. Reapproximation Vicryl suture material of the platysmas muscle followed with subcuticular reapproximation of dermis and epidermis, transverse surgical strips, sterile bandage. Bandage maintained and place with tape. The patient was awakened extubated in the operating room, and transported to postop recovery in good stable condition. Sanchez Marks M.D. DR: NIKOLAS JOB#: [id number] CC:
[2017-03-01] MEDS ORDERED: D5 1/2NS 1,000 ML IV SCH (13:45)
--- NOTE | 2017-03-01 14:19 | Diagnostic Imaging Report ---
Indication: PAIN, intraoperative Technique: Intraoperative images Comparison: None Findings: Intraoperative images demonstrate initially a surgical tool projected at the C4-5 level. Subsequent images demonstrate placement of disc prostheses at what are presumably C4-5 and C5-6 Impression: Intraoperative imaging, as described
[2017-03-01] MEDS ORDERED: Norco 10mg/325mg tab ORAL ONE (14:52)
[2017-03-01] MEDS ORDERED: Chloraseptic Spray 20mL Bottle ORAL ONE (14:52)
[2017-03-01] MEDS ORDERED: Chloraseptic Spray 20mL Bottle ORAL PRN (15:00)
[2017-03-01] MEDS ORDERED: Norco 10mg/325mg tab ORAL PRN (15:00)
[2017-03-01] MEDS ORDERED: HYDROmorphone 1mg/ml Carpuject IVP PRN (15:15)
[2017-03-01] MEDS ORDERED: ceFAZolin sod 1 GM in D5W 55 ML IV SCH (16:00)
[2017-03-01] MEDS ORDERED: Tubing IV Secondary IV ONE (16:55)
[2017-03-01] MEDS ORDERED: D5 1/2NS 1000ml IV ONE (16:55)
[2017-03-01] MEDS ORDERED: NS 550ML IV ONE (16:55)
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
--- NOTE | 2017-03-02 14:27 | Discharge Summary ---
Discharge Summary Hospital Course Date of Admission Mar 01, 2017 at 05:12 Date of Discharge Mar 01, 2017 at 16:56 Admitting Diagnosis HPI Aubrey Cordero is a 31 year old male who was admitted on Mar 01, 2017 at 05:12 for Cervical Discogenic Pain Hospital Course [id number] Discharge Discharge Disposition Patient was discharged to Home (01) Discharge Diagnoses: Mandi Tripp NP Mar 02, 2017 14:27
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
== END 2017-03-01 16:56 | disposition home or self-care (01) | DRG 518 ==
LOC: SDSOVERFLO 05:12 → 3E 13:26
PROC: 0RR30JZ Replacement of Cervical Vertebral Disc with Synthetic Substitute, Open Approach (ICD-10-PCS; principal; 2017-03-01 07:00)
DX: M50.822 Other cervical disc disorders at C5-C6 level (principal); Z87.891 Personal history of nicotine dependence; V89.2XXS Person injured in unspecified motor-vehicle accident, traffic, sequela; Z98.1 Arthrodesis status
CPT/HCPCS: 36415; 72040; 76001; 86850; 86900; 86901; 87081; J2710